=== PATIENT | male | born 1960 | race Caucasian/White ===

== ENCOUNTER 2020-07-23 08:50 | Outpatient (CLI) | payer BC, SELFPAY ==
--- NOTE | 2020-07-23 09:01 | ECG_ITS ---
Measurements Intervals [place] Rate: 50 P: 39 CT: 188 QRS: 3 QRSD: 108 T: 19 QT: 458 QTc: 419 Interpretive Statements SINUS BRADYCARDIA BASELINE ARTIFACT- I, II, III BORDERLINE ECG Electronically Signed On 07-23-2020 14:18:53 [employer] by Stevo Mei D.O.
== END 2020-07-23 08:51 | disposition home or self-care (01) ==
PROVIDERS: PCP Internal Medicine; Visit Provider Internal Medicine
DX: I10 Essential (primary) hypertension (principal); R94.31 Abnormal electrocardiogram [ECG] [EKG]
CPT/HCPCS: 93005

== ENCOUNTER → 2020-09-13 00:14 | Outpatient (CLI) | payer BC, SELFPAY ==
[2020-09-13 19:08] LABS: SARS-CoV-2 RNA PCR Negative
== END ==
PROVIDERS: PCP Internal Medicine; Visit Provider Internal Medicine Gastroenterology
DX: Z01.812 Encounter for preprocedural laboratory examination (principal); Z20.822 Contact with and (suspected) exposure to COVID-19
CPT/HCPCS: C9803; U0003; U0005

== ENCOUNTER 2020-09-16 00:53 | Day surgery (SDC) | payer BC, SELFPAY ==
[2020-09-02 14:05] VITALS: BMI 25.0
--- NOTE | 2020-09-15 13:28 | WPDANESEPPF ---
Anes - Initial Pre Proc Eval Procedure: Operation Date: 09/16/20 07:30 Proposed Procedures p Screening Colonoscopy - Alex Dunaway MD Date/Time: 09/15/20 13:28 Surgeon: Alex Dunaway MD Pre Op Diagnosis: Neoplasm Screening Patient Data Age: 60 Gender: M Height: 1.75 m Weight: 77 kg Allergies Allergy/AdvReac Type Severity Reaction Status Date / Time No Known Allergies Allergy Unverified 09/02/20 14:06 Home Medications Medication Instructions Recorded Confirmed Type multivitamin 1 tablet PO DAILY 07/19/20 09/16/20 History hydrochlorothiazide 12.5 mg tablet 12.5 mg PO DAILY #30 tablet 07/27/20 09/16/20 Rx lisinopril 20 mg tablet 20 mg PO DAILY #30 tablet 07/27/20 09/16/20 Rx rosuvastatin 5 mg tablet 5 mg PO DAILY #30 tablet 07/27/20 09/16/20 Rx Patient hx anesthesia problems: none Family hx anesthesia problems: none [facility] Past Medical History Medical History (Updated 09/15/20 @ 13:29 by Subhash Frederick MD) Chronic GERD Dyslipidemia HTN (hypertension) Family History Family History (Updated 07/19/20 @ 13:42 by Kristin Carrasco) Father , diabetes and heart disease No problems noted. Social History Social History (Updated 07/19/20 @ 13:30 by Kristin Carrasco) Smoking status: Never smoker Alcohol intake: current Drinks per week: 5 Substance use: never Substance use type: does not use Living arrangements: with family Spiritual care concerns: No Anes - Eval Final PreProcedure Day of Procedure 09/15/20 13:28 Patient weight: overweight Heart: regular rate and rhythm Lungs: clear to auscultation and normal air movement Airway: Mallampati scale class II Neurological: alert and oriented Last oral intake: >/= 8 hours ASA classification: II Emergent: no Anesthetic plan: proceed Anesthesia type and monitoring: general GIVS Informed Consent: The patient's anesthetic plan and its attendant risks and benefits were discussed with the patient/family/POA. Questions were solicited and answers provided to the satisfaction of the patient/family/POA.
[2020-09-16 06:14] VITALS: BP 123/74; PULSE 53; RESP 16; TEMP 36.5; O2SAT 98
[2020-09-16] MEDS: LACTATED RINGERS 1,000 ML 150 ML IV CONT (06:24)
--- NOTE | 2020-09-16 07:34 | PM.HPGS ---
History of Present Illness History of Present Illness Consent: Risks, benefits, and alternatives have been discussed and questions answered. Patient agrees to proceed with procedure. Chief complaint: Neoplasm Screening Narrative: Anup Lai is a 60 year old male here for first colon screening Review of Systems Constitutional: Constitutional: Denies headache(s) and Denies weakness Eyes: Eyes: Denies blurry vision ENT: Reports Normal hearing present, Denies headache(s) and Denies neck pain Cardiovascular: Cardiovascular: Denies chest pain and Denies dyspnea Respiratory: Respiratory: Denies dyspnea Gastrointestinal: Gastrointestinal: Reports no additional gastrointestinal complaints Genitourinary: Genitourinary: Denies dysuria Musculoskeletal: Musculoskeletal: Denies neck pain Integumentary/Breasts: Skin/Breast: Denies dry skin Neurologic: Reports Normal hearing present, Denies headache(s) and Denies weakness Psychiatric: Psychiatric: Denies anxiety Endocrine: Endocrine: Denies change in body appearance Hematologic/Lymphatic: Hematologic/Lymphatic: Denies easy bleeding Allergic/Immunologic: Allergic/Immunologic: Denies urticaria PMFSH Past Medical History Medical History (Updated 09/15/20 @ 13:29 by Subhash Frederick MD) Chronic GERD Dyslipidemia HTN (hypertension) Family History Family History (Updated 07/19/20 @ 13:42 by Kristin Carrasco) Father , diabetes and heart disease No problems noted. Social History Social History (Updated 07/19/20 @ 13:30 by Kristin Carrasco) Smoking status: Never smoker Alcohol intake: current Drinks per week: 5 Substance use: never Substance use type: does not use Living arrangements: with family Spiritual care concerns: No Meds Home Medications and Allergies Home Medications Medication Instructions Recorded Confirmed Type multivitamin 1 tablet PO DAILY 07/19/20 09/16/20 History hydrochlorothiazide 12.5 mg tablet 12.5 mg PO DAILY #30 tablet 07/27/20 09/16/20 Rx lisinopril 20 mg tablet 20 mg PO DAILY #30 tablet 07/27/20 09/16/20 Rx rosuvastatin 5 mg tablet 5 mg PO DAILY #30 tablet 07/27/20 09/16/20 Rx Allergies Allergy/AdvReac Type Severity Reaction Status Date / Time No Known Allergies Allergy Unverified 09/02/20 14:06 Vital Signs Vital Signs - 24 hr 09/16/20 06:14 Temperature 97.7 F Pulse Rate 53 L Respiratory Rate 16 Blood Pressure 123/74 Pulse Oximetry 98 Exam Const: General: comfortable and no acute distress HENMT: General nose exam: Normal nares present Eyes: General: appearance normal, both eyes and all related structures Neck: Neck: no JVD Resp: Auscultation: clear to auscultation bilaterally Cardio: Rate: regular rate Rhythm: regular rhythm GI: Inspection: non-distended GI Palp: Yes Soft to palpation Skin: General skin exam: normal color Neuro: General: gait normal Speech: normal speech Extrem: General: normal to inspection Psych: Mental Status: mental status grossly normal Assessment and Plan Assessment and plan (1) Encounter for screening colonoscopy: Code(s): Z12.11 - Encounter for screening for malignant neoplasm of colon Status: Acute Assessment and Plan: proceed with colonoscopy
[2020-09-16 08:00] VITALS: BP 110/69; PULSE 58; RESP 18; O2SAT 100
[2020-09-16 08:10] VITALS: BP 119/77; PULSE 58; RESP 20; O2SAT 100
[2020-09-16 08:20] VITALS: BP 113/76; PULSE 56; RESP 18; O2SAT 100
== END 2020-09-16 08:34 | disposition home or self-care (01) ==
PROVIDERS: Family Provider Family Medicine; PCP Internal Medicine; Visit Provider Internal Medicine Gastroenterology
PROC: 0DJD8ZZ Inspection of Lower Intestinal Tract, Via Natural or Artificial Opening Endoscopic (ICD-10-PCS; CPT 45378; principal; 2020-09-16 07:30)
DX: Z12.11 Encounter for screening for malignant neoplasm of colon (principal); K63.5 Polyp of colon; K64.4 Residual hemorrhoidal skin tags; K64.8 Other hemorrhoids; I10 Essential (primary) hypertension; K21.9 Gastro-esophageal reflux disease without esophagitis; E78.5 Hyperlipidemia, unspecified
CPT/HCPCS: 45385; 88305; J2704; J7120

== ENCOUNTER 2020-09-17 14:13 | Emergency (ER) | payer BC, SELFPAY ==
--- NOTE | ~2020-09-17 | CT_ITS ---
EXAMINATION: CT abdomen pelvis wo con DATE: 09/17/2020 15:51 INDICATION: Fever and abdominal pain post colonoscopy TECHNIQUE: Computed tomography (CT) of the abdomen and pelvis was performed without intravenous contr ast. The dose-length product (DLP) was 522.23 mGy-cm. Automated exposure control and iterative recons truction technique were employed. COMPARISON: None FINDINGS: There is a 4 mm nodule of the left lower lobe on image 17, likely old granulomatous disease in the absence of known malignancy. The heart size is normal. Within the limitations of noncontrast examination, the liver, spleen, pancreas, gallbladder, and adrenal glands are normal. Cysts of the ki dneys measure up to 4.8 cm on the left. No pathologically enlarged abdominal or pelvic lymph nodes ar e identified. There is no free intraperitoneal gas or evidence of bowel obstruction. There is liquid stool throughout much of the colon. There is mild lumbar spondylosis. IMPRESSION: 1. No CT correlate for the patient's symptoms. Reviewed, dictated and finalized at location A. [facility] [employer]
--- NOTE | ~2020-09-17 | XR_ITS ---
EXAMINATION: XR chest 1V portable INDICATION: Fever and abdominal pain post colonoscopy TECHNIQUE: Portable AP chest at 1533 hours COMPARISON: 09/15/2014 FINDINGS: The lungs are free of acute opacities. There is no pleural effusion or pneumothorax. The ca rdiomediastinal silhouette is normal. IMPRESSION: 1. No acute cardiopulmonary abnormality. Reviewed, dictated and finalized at location A. ER
[2020-09-17 14:15] VITALS: BP 130/57; PULSE 96; RESP 18; TEMP 38.3; O2SAT 100
[2020-09-17 14:55] LABS: INR 0.9; Prothrombin Time 12.6 Seconds (11.1-14.7)
[2020-09-17 14:56] LABS: Partial Thromboplastin Time 27.3 SECONDS (22.3-36.8)
--- NOTE | 2020-09-17 14:56 | ED.ABDPAIN ---
HPI - Abdominal Pain General Chief Complaint: Abdominal Pain <Alejandro Paredes PA-C - Last Filed: 09/17/20 17:41> Stated Complaint: colonoscopy complications-fever <KERON Rivera Last Filed: 09/17/20 17:41> Time Seen by Provider: 09/17/20 14:22 <KERON Rivera Last Filed: 09/17/20 17:41> Source: patient <KERON Rivera Last Filed: 09/17/20 17:41> Mode of arrival: ambulatory <KERON Rivera Last Filed: 09/17/20 17:41> Limitations: no limitations <KERON Rivera Last Filed: 09/17/20 17:41> History of Present Illness HPI narrative: Patient presents with chief complaint of abdominal pain and presented this morning at approximately 4:30 AM. Patient states that he had a colonoscopy performed by Dr. Ryan Marsh on Saturday morning. He states that he had some polyps removed that were sent for testing but otherwise his doctor did not note any complications or concerns. He states he has been able to pass gas and have bowel movement since the colonoscopy without any blood or mucus noted. He states he did notice cramping and tightening sensations which made him concerned so he came call the doctors after-hours line and was told to present to the emergency department especially since he began began running a low-grade temperature of 100.8. He states that he took 1 Tylenol prior to arrival. He denies any other symptoms such as fever, vomiting. He reports he is having some loose stool and some nausea. He reports at this time he is not experiencing abdominal pain just a bloated, tightening sensation diffusely in his abdomen. <KERON Rivera Last Filed: 09/17/20 17:41> Related Data Home Medications: Home Medications Medication Instructions Recorded Confirmed multivitamin 1 tablet PO DAILY 07/19/20 09/16/20 <KERON Rivera Last Filed: 09/17/20 17:41> Allergies/Adverse Reactions: Allergies Allergy/AdvReac Type Severity Reaction Status Date / Time No Known Allergies Allergy Verified 09/17/20 14:23 <Alejandro Paredes PA-C - Last Filed: 09/17/20 17:41> Review of Systems Review of Systems: Narrative: CONSTITUTIONAL: Reports chills and low-grade fever EYES: Denies visual changes, redness, or discharge. ENT: Denies rhinorrhea, congestion, sore throat, or otalgia. CARDIOVASCULAR: Denies chest pain, palpitations, or edema. RESPIRATORY: Denies cough or dyspnea. GASTROINTESTINAL: Reports abdominal bloating and cramping and nausea denies vomiting or constipation denies blood in stool or mucus GENITOURINARY: Denies dysuria or hematuria. SKIN: Denies rash or itching. MUSCULOSKELETAL: Denies back pain, joint pain, or myalgia. NEUROLOGIC: Denies headache, numbness, dizziness, or weakness. PSYCHIATRIC: Denies anxiety or depression. <Alejandro Paredes PA-C - Last Filed: 09/17/20 17:41> PMFSH Past Medical History Medical History: Medical History (Updated 09/17/20 @ 16:43 by Alejandro Paredes PA-C) Chronic GERD Dyslipidemia HTN (hypertension) <Alejandro Paredes PA-C - Last Filed: 09/17/20 17:41> Family History Family History: Family History (Updated 07/19/20 @ 13:42 by Kristin Carrasco) Father , diabetes and heart disease No problems noted. <Alejandro Paredes PA-C - Last Filed: 09/17/20 17:41> Social History Social History: Social History (Updated 07/19/20 @ 13:30 by Kristin Carrasco) Smoking status: Never smoker Alcohol intake: current Drinks per week: 5 Substance use: never Substance use type: does not use Gender identity (if verbalized by the patient): Male Spiritual care concerns: No <Alejandro Paredes PA-C - Last Filed: 09/17/20 17:41> Exam Narrative: Exam Narrative: GENERAL: Well-appearing, well-nourished, and in no acute distress. HEAD: Normocephalic, atraumatic. EYES: PERRLA and EOMI. CHEST: Clear to auscultation. No respiratory distress. No wheezes rales or rhonchi HEART: Re
[2020-09-17 14:57] LABS: Hematocrit 45.3 % (42.0-52.0); Hemoglobin 15.6 g/dL (14.0-18.0); Mean Corpuscular HGB Conc 34.4 g/dl (32-36); Mean Corpuscular Hemoglobin 30.9 pg (26-34); Mean Corpuscular Volume 89.7 fl (80-100); Mean Platelet Volume 10.7 fl (7.4-10.4); Platelet Count Result 219 k/mm3 (150-375); Red Blood Count 5.05 M/mm3 (4.6-6.20); Red Cell Distribution Width 11.7 % (11.5-14.5); White Blood Count 13.1 K/mm3 (4.5-10.0)
[2020-09-17 14:59] LABS: Lactic Acid Reflex 3.3 mmol/L (0.7-2.1)
[2020-09-17 15:00] LABS: Alanine Aminotransferase 33 U/L (4-50); Albumin Level 4.2 g/dL (3.5-5.1); Alkaline Phosphatase 51 U/L (38-126); Anion Gap 10 mmol/L (8-16); Aspartate Amino Transferase 31 U/L (17-59); Bilirubin,Total 0.6 mg/dL (0.2-1.3); Blood Urea Nitrogen 12 mg/dL (9-20); Calcium 9.5 mg/dL (8.4-10.2); Carbon Dioxide 25 mmol/L (22-30); Chloride 101 mmol/L (98-107); Estimated CRCL calculation 85 ml/min; Estimated Glomerular Filt Rate > 60; Glucose 128 mg/dL (75-110); Lipase 77 U/L (23-300); Potassium 3.7 mmol/L (3.4-5.0); Sodium 136 mmol/L (137-145)
[2020-09-17 15:03] LABS: Add Urine Microscopic? YES; Appearance Urine Clear (Clear); Bilirubin Urine Negative (Negative); Blood Urine Negative (Negative); Color Urine Yellow (Yellow); Glucose Urine UA Negative (Negative); Ketones Urine Negative (Negative); Leukocyte Esterase Ur Negative LEU/UL (Negative); Mucus Urine Few /lpf; Nitrate Urine Negative (Negative); Protein Urine 1+ mg/dL (Negative); RBC Urine 0-2 /hpf (0-2); Specific Grav Ur 1.023 (1.001-1.035); Squamous Epithelial Cell Urine Rare /hpf (Few); Urobilinogen Urine Negative mg/dL (<2.0)
[2020-09-17] MEDS: METOCLOPRAMIDE HCL INJ 10 MG/2 ML VIAL IV PUSH (15:03)
[2020-09-17] MEDS: SODIUM CHLORIDE 0.9% IV 1,000 ML 999 ML (15:04)
--- NOTE | 2020-09-17 15:11 | ECG_ITS ---
Measurements Intervals [place] Rate: 78 P: 37 HI: 152 QRS: 67 QRSD: 110 T: 37 QT: 372 QTc: 425 Interpretive Statements SINUS RHYTHM INCOMPLETE RIGHT BUNDLE BRANCH BLOCK MINIMAL Q WAVES- INFERIOR LEADS BORDERLINE ECG Electronically Signed On 09-17-2020 20:12:35 [employer] by Stevo Mei D.O.
[2020-09-17 15:17] LABS: Band Neutrophils Percent 11 % (0-6); Lymphocytes Absolute Manual 0.65 K/mm3 (1.1-4.5); Monocytes Absolute Manual 0.52 K/mm3 (0.1-0.90); Monocytes Percent Manual 4 % (3-9); Neutrophils Absolute Manual 11.92 K/mm3 (1.3-6.7); Neutrophils Percent Manual 80 % (46-73); Platelet Estimate Adequate (Adequate); Total Cells Counted 100
[2020-09-17 16:13] VITALS: BP 122/72; PULSE 78; RESP 21; O2SAT 100
[2020-09-17 16:14] VITALS: TEMP 36.4
[2020-09-17 17:18] VITALS: BP 121/64; PULSE 80; RESP 11; O2SAT 100
[2020-09-17 17:43] LABS: Reflex Lactic Acid Yes or No Add Lactic
== END 2020-09-17 17:20 | disposition home or self-care (01) ==
PROVIDERS: Physician Assistant; Emergency Provider General Practice; PCP Internal Medicine
DX: K52.9 Noninfective gastroenteritis and colitis, unspecified (principal); K21.9 Gastro-esophageal reflux disease without esophagitis; E78.5 Hyperlipidemia, unspecified; I10 Essential (primary) hypertension; I45.10 Unspecified right bundle-branch block
CPT/HCPCS: 36415; 71045; 74176; 80053; 81001; 83605; 83690; 85025; 85610; 85730; 87040; 87804; 93005; 96361; 96374; 99284; J2765; J7030

== ENCOUNTER → 2021-06-09 00:29 | Outpatient (CLI) | payer BC, SELFPAY ==
[2021-06-09 17:10] LABS: SARS-CoV-2 RNA PCR Negative
== END ==
PROVIDERS: PCP Internal Medicine; Visit Provider Internal Medicine
DX: R68.89 Other general symptoms and signs (principal); Z20.822 Contact with and (suspected) exposure to COVID-19
CPT/HCPCS: C9803; U0003; U0005

== ENCOUNTER → 2023-03-29 14:00 | Outpatient (CLI) | payer BC, SELFPAY ==
--- NOTE | ~2023-03-29 | XR_ITS ---
EXAMINATION: XR lumbar spine 2-3V DATE: 03/29/2023 14:30 INDICATION: Low back pain TECHNIQUE: Anteroposterior and lateral views of the lumbar spine, and cone-down lateral view of the l umbosacral junction were obtained. COMPARISON: CT, 09/17/2020 FINDINGS: Motion artifact limits the lateral view of the lumbar spine. Bone alignment is normal. No d efinite fracture is identified. There is mild loss of intervertebral disc space height at L5-S1. IMPRESSION: 1. Mild lumbar spondylosis without acute findings. Sensitivity slightly limited by motion artifact. Reviewed, dictated and finalized at location F.
== END ==
PROVIDERS: PCP Nurse Practitioner Family; Visit Provider Nurse Practitioner Family
DX: M54.50 Low back pain, unspecified (principal); M43.06 Spondylolysis, lumbar region
CPT/HCPCS: 72100

== ENCOUNTER 2023-06-21 15:23 | Outpatient (CLI) | payer BC, SELFPAY ==
[2023-06-21 15:47] LABS: Appearance Urine Clear (Clear); Bilirubin Urine Negative (Negative); Blood Urine Negative (Negative); Color Urine Yellow (Yellow); Glucose Urine UA Negative (Negative); Ketones Urine Negative (Negative); Leukocyte Esterase Ur Negative LEU/UL (Negative); Nitrate Urine Negative (Negative); Protein Urine Negative (Negative); Specific Grav Ur 1.007 (1.001-1.035); Urobilinogen Urine 0.2 mg/dL (<2.0)
[2023-06-21 15:52] LABS: Add Urine Microscopic? NO
== END 2023-06-21 15:24 | disposition home or self-care (01) ==
PROVIDERS: PCP Nurse Practitioner Family; Visit Provider Nurse Practitioner Family
DX: N39.0 Urinary tract infection, site not specified (principal)
CPT/HCPCS: 81003